=== PATIENT | male | born 1975 ===

== ENCOUNTER 2020-03-07 07:27 | Outpatient (CLI) | payer BC, SELFPAY ==
[2020-03-08 23:44] LABS: COVID-19 RT-PCR Result NEGATIVE (Negative)
== END 2020-03-07 07:47 ==
PROVIDERS: PCP Family Medicine; Visit Provider Nurse Practitioner
DX: Z11.59 Encounter for screening for other viral diseases (principal); Z01.818 Encounter for other preprocedural examination
CPT/HCPCS: U0003